=== PATIENT | male | born 1935 | race Caucasian/White ===

== ENCOUNTER 2019-05-05 06:57 | Outpatient (CLI) | payer MEDICARE, OTHER ==
[2019-05-05] VITALS (9 sets, daily range): BP systolic 117–143; BP diastolic 57–71
[~2019-05-05] VITALS: Ht 177.8 cm; Wt 86.2 kg
[~2019-05-05 06:57] MED LIST: ALLO300T PO; ANAGRELIDE HCL0.5 MG PO; ASPI325T8 PO; EZET1TAB30 PO; HYDR500C16 PO; LEVO75TA5 PO; OMEG500C3 PO; PROP150T2 PO; WARF-31 PO
[2019-05-05 07:34] LABS: BASO # 0.3 x10^3/uL (0.0-0.2); BASO % 1 % (0-3); EOS # 0.5 x10^3/uL (0.0-0.7); EOS % 2 % (0-3); HEMATOCRIT 41.9 % (39.0-53.0); HEMOGLOBIN 13.9 g/dL (13.0-17.5); LYMPH # 1.6 x10^3/uL (1.0-4.8); LYMPH % 7 % (24-48); MEAN CORPUSCULAR HEMOGLOBIN 30 pg (25-35); MEAN CORPUSCULAR HGB CONC 33 g/dL (31-37); MEAN CORPUSCULAR VOLUME 92 fL (79-100); MONO # 1.7 x10^3/uL (0.0-1.1); MONO % 8 % (0-9); NEUT # 17.2 x10^3/uL (1.8-7.7); NEUT % 81 % (31-73); PLATELET COUNT 311 x10^3/uL (140-400); RED BLOOD COUNT 4.58 x10^6/uL (4.30-5.70); WHITE BLOOD COUNT 21.2 x10^3/uL (4.0-11.0)
[2019-05-05] MEDS ORDERED: PANT40TA77 PO (07:34)
[2019-05-05] MEDS ORDERED: LOSA100T14 PO (07:34)
[2019-05-05] MEDS ORDERED: AMIO200T4 PO (07:34)
[2019-05-05] MEDS ORDERED: CHOL10003 PO (07:34)
[2019-05-05] MEDS ORDERED: AMLO2.5T5 PO (07:34)
[2019-05-05] MEDS ORDERED: ASPI81TA50 PO (07:34)
[2019-05-05] MEDS ORDERED: PRAV20TA2 PO (07:34)
[2019-05-05 07:51] LABS: PROTHROMBIN TIME PATIENT 15.3 SEC (11.7-14.0)
[2019-05-05] MEDS ORDERED: LIDOCAINE WITH 8.4% SOD BICARB 3 ML DISP.SYRIN. ONE (08:18)
[2019-05-05] MEDS ORDERED: fentaNYL PF VIAL 100 MCG/2 ML VIAL ONE (08:19)
[2019-05-05] MEDS ORDERED: MIDAZOLAM HCL/PF 2 MG/2 ML VIAL. ONE (08:19)
[2019-05-05] MEDS ORDERED: ONDANSETRON PF 4 MG/2 ML VIAL. ONE (08:22)
[2019-05-05] MEDS ORDERED: ONDANSETRON PF 4 MG/2 ML VIAL. IM ONE (08:30)
--- NOTE | 2019-05-05 08:47 | PDOC ---
MODERATE SEDATION ASSESSMENT RISKS/ALTERNATIVES Risks/Alternatives Risks and alternatives of this type of sedation and procedure discussed with: RISK/ALTERNATIVES: Patient H & P ON CHART H & P H & P on chart and reviewed for co-morbid conditions and appropriate labs. H&P ON CHART: Yes STATUS PREG STATUS ASSESSED: Yes MEDS/ALLERGIES REVIEWED Meds/Allergies Reviewed Medications and Allergies including time and route of recently administered narcotics and sedatives. MEDS/ALLERGIES REVIEWED: Yes ASA RATING ASA RATING: II AIRWAY ASSESSMENT Airway Assessment Airway patency, oral function limitations, presence of caps, crowns, dentures, partials, and ability to extend neck assessed. AIRWAY ASSESSMENT: Yes MALLAMPATI SCORE MALLAMPATI SCORE: II PRE-SEDATION ASSESSMENT PRE-SEDATION ASSESSMENT: Yes TREVOR RUIZ MD May 05, 2019 08:47
[2019-05-05] MEDS ORDERED: MIDAZOLAM HCL/PF 2 MG/2 ML VIAL. IV ONE (09:00)
[2019-05-05] MEDS ORDERED: ONDANSETRON PF 4 MG/2 ML VIAL. IV ONE (09:00)
[2019-05-05] MEDS ORDERED: fentaNYL PF VIAL 100 MCG/2 ML VIAL IV ONE (09:00)
[2019-05-05] MEDS ORDERED: LIDOCAINE WITH 8.4% SOD BICARB 3 ML DISP.SYRIN. IJ ONE (09:00)
--- NOTE | 2019-05-05 10:08 | RAD ---
CT-guided bone marrow biopsy. 05/05/2019 10:04 AM Indication: thrombocyosis Discussion: The risks and benefits of the procedure, including but not limited to, bleeding and infection were discussed patient. Informed consent was obtained. The patient was brought to the CT scanner and placed in the prone position. A timeout procedure was performed. [employer] CT imaging of the pelvis demonstrated left ilium amenable to bone marrow biopsy. The overlying soft tissues were prepped and draped using maximum sterile barrier technique. 1% lidocaine without epinephrine was administered for local anesthesia. Under intermittent CT guidance, an OncControl needle was advanced into the bone marrow of the left iliac crest. 2 Aspirates and 1 core biopsy samples were obtained. Samples were delivered to pathology was present at the time of procedure. The needle was removed and manual pressure held to achieve hemostasis. No immediate complications were identified. The procedure was performed under conscious sedation including continuous cardiopulmonary monitoring via dedicated sedation nurse. Sedation time: 20 minutes Impression: Successful CT-guided bone marrow biopsy of the left iliac crest . PQRS Compliance Statement: One or more of the following individualized dose reduction techniques were utilized for this examination: 1. Automated exposure control 2. Adjustment of the mA and/or kV according to patient size 3. Use of iterative reconstruction technique
[2019-05-05 10:11] LABS: % BANDS 15 % (0-9); % BASOS 4 % (0-3); % EOS 3 % (0-5); % LYMPHS 9 % (24-48); % MONOS 7 % (0-10); % MYELOS 8 % (0-0); % SEGS 54 % (35-66); NUCLEATED RBC 2; PLT ESTIMATE ADEQUATE (ADEQUATE)
[2019-05-05 10:12] LABS: ANISOCYTOSIS MOD; OVALOCYTES PRESENT; POIKILOCYTOSIS PRESENT
--- NOTE | 2019-05-05 10:32 | NUR ---
Discharge Note: ALMA ROSA EPPERSON Discharge instructions and discharge home medications reviewed with Family Member and a copy given. All questions have been answered and understanding verbalized. Patient ate breakfast without any difficulties. The following instructions and handouts were given: Moderate sedation and bone marrow biopsy. Discontinued lines and drains: PIV right wrist, dressing clean dry intact. [facility]
== END 2019-05-05 10:30 | disposition home or self-care (01) ==
LOC: INTRAD 06:57
PROVIDERS: ATTEND Internal Medicine Hematology & Oncology
DX: D47.3 Essential (hemorrhagic) thrombocythemia (principal)
CPT/HCPCS: 36415; 38222; 77012; 85025; 85610; 85730; 88184; 88185; 88237; 99152; J2250; J2405; J3010; 85007